=== PATIENT | male | born 1970 | race Caucasian/White ===

== ENCOUNTER 2022-11-04 10:22 | Emergency (ER) | payer BC, SELFPAY ==
[2022-11-04 11:00] VITALS: BP 133/53; PULSE 69; RESP 18; TEMP 38; O2SAT 98
--- NOTE | 2022-11-04 12:07 | ED.URI ---
HPI - URI/Sore Throat General Chief Complaint: Upper Respiratory Infection Stated Complaint: Fever Time Seen by Provider: 11/04/22 12:05 Source: patient Mode of arrival: ambulatory Limitations: no limitations History of Present Illness HPI Narrative: 52-year-old male who presents to [facility] complaints of runny nose, cough, fever up to 101F, body aches since yesterday. Patient voices concern for COVID, states he developed blood clot after COVID vaccination and is taking blood thinner of Xarelto. Patient does have history of asthma, denies any acute shortness of breath, no tachypnea or accessory muscle use. Patient reports that he has been taking Airborne for his symptoms. MD elicited complaint: fever, cough, rhinorrhea, nasal congestion and other (body aches) Pertinent past history: asthma Onset (ago): day(s) (day 2 of symptoms) Treatments prior to arrival: other (Airborne) Related Data Home Medications Medication Instructions Recorded Confirmed albuterol sulfate 90 mcg/actuation 2 puff inhalation Q4H PRN SOB 11/04/22 11/04/22 aerosol inhaler rivaroxaban 20 mg tablet (Xarelto) 20 mg PO DAILY 11/04/22 11/04/22 Allergies Allergy/AdvReac Type Severity Reaction Status Date / Time No Known Allergies Allergy Verified 11/04/22 11:22 Review of Systems Review of Systems: CONSTITUTIONAL:Reports malaise, chills, sweats, or fever. EYES: Denies visual changes, redness, or discharge. ENT: Reports rhinorrhea, congestion, sinus pain,no otalgia or sore throat. CARDIOVASCULAR: Denies chest pain, palpitations, or edema. RESPIRATORY: Reports cough.? Denies dyspnea. GASTROINTESTINAL: Denies abdominal pain, nausea, vomiting, diarrhea SKIN: Denies rash or itching. MUSCULOSKELETAL: Reports myalgia. NEUROLOGIC: Denies headache. All systems reviewed & are unremarkable except as noted in HPI and below PMFSH Past Medical History Medical History (Updated 11/14/22 @ 20:48 by Fozia Inman NP) Asthma History of blood clots Developed blood clot after receiving COVID vaccine Surgical History Surgical History (Updated 11/14/22 @ 20:49 by Fozia Inman NP) H/O inguinal hernia repair Social History Social History (Updated 11/14/22 @ 20:50 by SHARATH Kovacs Smoking status: Former smoker Tobacco type: cigarettes and e-cigarettes/vaping Alcohol intake: unknown Substance use: unknown Gender identity (if verbalized by the patient): Male Comments At time of signature, agree with nursing past medical, surgical, social and family history. There is no relevant family history pertinent to the presenting complaint Exam Narrative: GENERAL: Well-appearing, well-nourished, and in no acute distress. HEAD: Normocephalic EYES: PERRLA, conjunctivae clear ENT: Nares clear, turbinates edematous and erythematous, clear discharge. Mucous membranes moist. TM pearly cruz with dull light reflex bilaterally; no tragal tenderness. Oropharynx erythematous without lesions. Tonsils not enlarged and without exudate, no drooling, no hoarseness, no trismus, uvula midline.post nasal drainage NECK: Supple. No lymphadenopathy CHEST: Clear to auscultation, breath sounds equal. No wheezing, rhonchi, rales, or stridor. No respiratory distress, speaks in full sentences.cough, SAO2 98% on room air HEART: Regular rate and rhythm. No murmur heard. SKIN: Warm, dry, no rash. NEURO: Alert and oriented x3. PSYCH: Normal mood and affect Course Course Emergency Course: Patient is aware of diagnosis, understands and agrees to treatment plan.? Anticipatory guidance given.? Patient agrees to follow-up as directed and is aware of reasons to seek care at the emergency department. Portions of this record may have been created with voice recognition software Level of Care: Express Care Visit Vital Signs Vital signs: Vital Signs Temperature 38.0 C H 11/04/22 11:00 Pulse Rate 69 11/04/22 11:00 Respiratory R
== END 2022-11-04 12:50 | disposition home or self-care (01) ==
PROVIDERS: Emergency Provider Registered Nurse
DX: J10.1 Influenza due to other identified influenza virus with other respiratory manifestations (principal); R05.1 Acute cough; Z20.822 Contact with and (suspected) exposure to COVID-19; J45.909 Unspecified asthma, uncomplicated; Z86.2 Personal history of diseases of the blood and blood-forming organs and certain disorders involving the immune mechanism
CPT/HCPCS: 87426; 87804; 99203; C9803; G0463

== ENCOUNTER 2025-10-07 15:19 | Emergency (ER) | payer SELFPAY ==
--- NOTE | 2025-10-07 15:29 | ECG_ITS ---
Test Date: 2025-10-07 15:39:56 Measurements Intervals [place] Rate: 62 P: 53 DE: 144 QRS: 60 QRSD: 84 T: 53 QT: 360 QTc: 367 Interpretive Statements SINUS RHYTHM Electronically Signed On 10-07-2025 20:03:00 FILM TECHNICIAN by Robert Wilson D.O
[2025-10-07 15:39] VITALS: BP 138/78; PULSE 72; RESP 20; TEMP 36.8; O2SAT 98
--- NOTE | 2025-10-07 16:15 | ED_ITS ---
HPI - Dizziness General Chief Complaint: Dizziness Stated Complaint: Blood Pressure Problem/Dizziness Time Seen by Provider: 10/07/25 16:00 Source: patient and RN notes reviewed Mode of arrival: ambulatory Limitations: no limitations History of Present Illness HPI Narrative: 55-year-old male patient presents to the [facility] complaining of dizziness blood pressure problems for last week. Patient says it has been intermittent however it became more persistent today. Describes the dizziness of feeling lightheaded, feeling he was going to pass out. Patient says is worse with standing. Patient also reports some shortness of breath with exertion at times. Patient said he took a friend's metoprolol I then tried a lisinopril tablet on 2 different days a help with his blood pressure and said that it dropped his blood pressure. Patient said his blood pressure was high is 149/100 the other day. Patient denies any chest pain, fevers, cough, any upper respiratory symptoms, nausea, vomiting, diarrhea, abdominal pain, leg swelling,, or other symptoms. Patient reports a history of blood clots, he is supposed to be on Xarelto however he stopped taking it because he lost his insurance and financial burden. Patient has been on Xarelto for over a year, he was admitted over to [facility] for large PE and large blood clot in his right leg. Patient denies any leg pain. Related Data Home Medications ?Medication ?Instructions ?Recorded ?Confirmed ?Last Taken ?Type rivaroxaban 20 mg tablet (Xarelto) 20 mg PO DAILY 10/2111/04/22 Unknown History Allergies Allergy/AdvReac Type Severity Reaction Status Date / Time No Known Allergies Allergy Verified 10/07/25 15:37 Review of Systems Review of Systems: CONSTITUTIONAL: Denies fever, chills, or sweats. EYES: Denies visual changes, redness, or discharge. ENT: Denies rhinorrhea, congestion, sore throat, or otalgia. CARDIOVASCULAR: Denies chest pain, palpitations, or edema. Positive for dizziness and lightheadedness. RESPIRATORY: Denies cough or dyspnea at rest. Positive for dyspnea with exertion. GASTROINTESTINAL: Denies abdominal pain, nausea, vomiting, or diarrhea. GENITOURINARY: Denies dysuria or hematuria. SKIN: Denies rash or itching. MUSCULOSKELETAL: Denies back pain, joint pain, or myalgia. NEUROLOGIC: Denies headache, numbness, or weakness. PSYCHIATRIC: Denies anxiety or depression. All other systems reviewed are negative, except as documented in HPI. [facility] Past Medical History Medical History Asthma History of blood clots Developed blood clot after receiving COVID vaccine Surgical History Surgical History H/O inguinal hernia repair Social History Social History Smoking status: Former smoker Tobacco type: cigarettes and e-cigarettes/vaping Alcohol intake: unknown Substance use: unknown Gender identity (if verbalized by the patient): Male Comments At the time of my signature, I reviewed and agree with the nursing past medical, surgical, social, and family history. There is no relevant family history p ertinent to the patient complaint. Exam Narrative: GENERAL: This is a well-nourished, well-developed adult, in no apparent distress. They are non ill-appearing, nontoxic appearing. HEAD: normocephalic, atraumatic. EYES: Sclera clear/white. Conjunctiva normal. Vision is grossly intact. Extraocular movements intact. Pupils PERRLA. No nystagmus. EARS: External ears normal, Hearing grossly intact. NOSE: External nose normal THROAT: Mucous membranes moist, NECK: Neck supple, non-tender without lymphadenopathy, masses or thyromegaly. No JVD. No bruit. CARDIOVASCULAR: Regular rate and rhythm without murmurs, gallops, or rubs. RESPIRATORY: Clear to auscultation. Breath sounds equal bilaterally. No wheezes, rales, or rhonchi. SKIN: warm, Dry, intact with no suspicious lesions or rash, good texture and turgor. NEURO: awake, alert, and oriented to person, place and time. There were no obvio us focal neurologic abnormalities. EXTREMITIES: No joint tenderness, effusion, or edema noted. BACK: Nontender without deformity. Course Course Emergency Course: Portions of this record may have been created with voice recognition software Level of Care: Express Care Visit Vital Signs Vital signs: Vital Signs Temperature 98.2 F 10/07/25 15:39 Pulse Rate 72 10/07/25 15:39 Respiratory Rate 20 10/07/25 15:39 Blood Pressure 138/78 10/07/25 15:39 Pulse Oximetry 98 10/07/25 15:39 Oxygen Delivery Room Air 10/07/25 15:39 Temperature 98.2 F 10/07/25 15:39 Pulse Rate 72 10/07/25 15:39 Respiratory Rate 20 10/07/25 15:39 Blood Pressure 138/78 10/07/25 15:39 Pulse Oximetry 98 10/07/25 15:39 Oxygen Delivery Room Air 10/07/25 15:39 Reviewed Transfer Transfered to: [facility] Transportation: Other (Private vehicle) Transfer rationale: Patient requires higher level care my lab work, advanced imaging, rule out blood clot. Accepting physician: Dr. Ding [facility] - Dizziness MDM Narrative Medical decision making narrative: EKG sinus rhythm without ischemic findings. Given patient's history and symptoms patient would benefit with ER transfer. Patient is supposed to be on Xarelto for history of pulmonary embolism, was never evaluated to see if blood clots have resolved. Discussed physical exam findings. Advised supportive measures and signs/symptoms to go to the ER. Pt is appropriate for outpt treatment and f/u. Patient is agreeable [facility] ER. Lower to [facility] ER spoke to Fran Arechiga who is aware this patient and Dr. Ding who accepted the patient for transfer. Patient's vital signs hemodynamically stable, no tachycardia, normal oxygen saturation. Patient nontoxic appearing, no apparent distress. Blood pressue mildly elevated today. Advised patient not take other people's blood pressure medications and she is doing on the supervision of the physician. Patient did drive himself to the hospital via private vehicle. Patient is stable drive self to the hospital via private vehicle. Advised to remain NPO proceed immediately to the ER. Differential Diagnosis Differential diagnosis: Likely adverse reaction to drug, benign paroxysmal positional vertigo, orthostatic hypotension, cerebrovascular accident and other (Pulmonary embolism, deep vein thrombosis) ECG Data EKG #1: Attestation: I personally reviewed and interpreted this ECG as follows: ECG completion date: 10/07/25 ECG completion time: 15:39 Prior ECG tracings: not available for review EKG Interpretation: normal rate, sinus rhythm, no ectopy, no ST changes, normal QRS, normal QT and NL axis Critical Care Time Critical Care Time Critical Care Time: No Discharge Plan Discharge Clinical Impression: Dizziness Patient Disposition: Acute Care Hospital Condition: Stable Patient Language: French Prescriptions: No Action Xarelto 20 mg tablet 20 mg PO DAILY Follow-up/Referrals: PHYSICIAN,BLENDER/BRAZE APPLICATOR [Primary Care Provider, Internal Medicine] Time of Disposition: 16:10
== END 2025-10-07 16:15 | disposition short-term general hospital (02) ==
DX: R42 Dizziness and giddiness (principal); J45.909 Unspecified asthma, uncomplicated; Z86.2 Personal history of diseases of the blood and blood-forming organs and certain disorders involving the immune mechanism; Z91.141 Patient's other noncompliance with medication regimen due to financial hardship; Z87.891 Personal history of nicotine dependence
CPT/HCPCS: 93005; 99213; G0463